=== PATIENT | female | born 1985 | race Caucasian/White ===

== ENCOUNTER 2020-09-01 07:56 | Outpatient (CLI) | payer BC, SELFPAY ==
--- NOTE | ~2020-09-01 | MM_ITS ---
EXAMINATION: MM screening lara BI w jaimie HISTORY: Screening mammogram TECHNIQUE: Craniocaudal and mediolateral oblique 3-D tomosynthesis images were obtained and synthetic 2-D images were generated. CAD analysis was submitted and interpreted. COMPARISON: 09/18/2018 bilateral digital screening mammogram BREAST PARENCHYMAL COMPOSITION: There are scattered areas of fibroglandular density. FINDINGS: There is no evidence of suspicious mass, calcification, or architectural distortion to sugg est malignancy in either breast. There has been no suspicious interval change. IMPRESSION: 1. No mammographic evidence of malignancy. 2. Recommend routine screening mammography in one year. BI-RADS Category 1: Negative Reviewed, dictated and finalized at location A. PROGRAMMER
== END 2020-09-01 07:57 | disposition home or self-care (01) ==
PROVIDERS: PCP Physician Assistant; Visit Provider Obstetrics & Gynecology
DX: Z12.31 Encounter for screening mammogram for malignant neoplasm of breast (principal)
CPT/HCPCS: 77063; 77067

== ENCOUNTER → 2021-03-24 10:56 | Outpatient (REF) | payer BC, SELFPAY | LOC: ANHLAB 10:56 | PROVIDERS: PCP Physician Assistant; Visit Provider Nurse Practitioner | DX: D23.9 Other benign neoplasm of skin, unspecified (principal) | CPT/HCPCS: 88305 ==

== ENCOUNTER 2022-09-28 08:00 | Outpatient (NON) | payer BC, SELFPAY | END 2022-09-28 08:01 | disposition home or self-care (01) | LOC: ANHLAB 09-29 12:01 | PROVIDERS: PCP Physician Assistant; Visit Provider Nurse Practitioner | DX: L91.0 Hypertrophic scar (principal) | CPT/HCPCS: 88305 ==

== ENCOUNTER 2023-04-28 22:00 | Emergency (ER) | payer BC, SELFPAY ==
--- NOTE | ~2023-04-28 | XR_ITS ---
EXAMINATION: XR chest 1V portable 04/28/2023 23:32 INDICATION: Chest and back pain. Cough. PROCEDURE: AP portable chest COMPARISON: No prior studies for comparison. FINDINGS: The lungs are clear. The cardiomediastinal silhouette is within normal limits. There are no pleural effusions. There is no pneumothorax suspected. IMPRESSION: 1: NO ACUTE CARDIOPULMONARY DISEASE. Reviewed, dictated and finalized at location A.
[2023-04-28 22:01] VITALS: BP 151/83; PULSE 83; RESP 20; TEMP 36.6; O2SAT 100
--- NOTE | 2023-04-28 23:10 | ECG_ITS ---
Measurements Intervals [place] Rate: 72 P: 47 AK: 151 QRS: 52 QRSD: 85 T: -1 QT: 376 QTc: 413 Interpretive Statements SINUS RHYTHM NONSPECIFIC T-WAVE ABNORMALITY- ANT/INF LEADS BORDERLINE ECG NO PREVIOUS ECG AVAILABLE FOR COMPARISON Electronically Signed On 04-29-2023 7:49:57 CDT by Elbert Perales D.O.
--- NOTE | 2023-04-28 23:20 | ED.GENADULT ---
HPI - General Adult General Chief complaint: Back Pain/Injury <Vinny Michelle PA-C - Last Filed: 04/29/23 01:10> Stated complaint: back pain <ALVARADO Duarte Last Filed: 04/29/23 01:10> Time Seen by Provider: 04/28/23 22:32 <Vinny Michelle PA-C - Last Filed: 04/29/23 01:10> Source: patient <ALVARADO Duarte Last Filed: 04/29/23 01:10> Mode of arrival: ambulatory <ALVARADO Duarte Last Filed: 04/29/23 01:10> Limitations: no limitations <ALVARADO Durate Last Filed: 04/29/23 01:10> History of Present Illness HPI narrative: This is a 37-year-old female who presents to the ED with chief complaint of mid to upper back pain onset today. Reports she has a recent viral illness and has been coughing a lot. She feels that this pain is likely due to coughing hard. She is concerned for a spasm. She reports pain across the chest at times as well but her main complaint is the back pain. Denies any exertional component to the chest pain. Denies shortness of breath. She states the cough is nonproductive. Denies fevers, chills, leg swelling, palpitations, LOC, vomiting, abdominal pain. <Vinny Michelle PA-C - Last Filed: 04/29/23 01:10> Related Data Allergies/adverse reactions: Allergies Allergy/AdvReac Type Severity Reaction Status Date / Time No Known Allergies Allergy Verified 04/28/23 22:00 <Vinny Michelle PA-C - Last Filed: 04/29/23 01:10> Review of Systems Review of Systems: All systems as dictated in HPI <ALVARADO Duarte Last Filed: 04/29/23 01:10> [facility] Social History Social History: Social History Smoking status: Never smoker <ALVARADO Duarte Last Filed: 04/29/23 01:10> Exam Narrative: GENERAL: Well-appearing, well-nourished, and in no acute distress. HEAD: Normocephalic, atraumatic. EYES: PERRLA and EOMI. ENT: Nares clear, no rhinorrhea or epistaxis. Mucous membranes moist. Oropharynx without tonsillar hypertrophy exudate or other lesions. NECK: Supple. No adenopathy or masses. CHEST: No respiratory distress. Clear to auscultation. No wheezes rales or rhonchi. Mild chest wall tenderness across the chest. HEART: Regular rate and rhythm. No murmur heard. Normal peripheral pulses. ABDOMEN: Soft, nontender, nondistended, normal active bowel sounds. MSK: Tenderness across the upper back. Pain is reproducible with lateral bending to the right. No midline spinal tenderness. SKIN: Warm, dry, no rash. NEURO: Alert and oriented x3. No focal deficits. PSYCH: Normal mood and affect. <Vinny Michelle PA-C - Last Filed: 04/29/23 01:10> Course Course Emergency Course: Reevaluation 0048: Patient feeling much improved and ready to go home. <Vinny Michelle PA-C - Last Filed: 04/29/23 01:10> [employer]ENT/PA Physician Supervision This visit was performed by both a physician and an APC. I performed all aspects of the MDM as documented. <Carla Olivo MD - Last Filed: 04/29/23 01:11> Vital Signs Vital signs: Vital Signs Temperature 97.8 F 04/28/23 22:01 Pulse Rate 83 04/28/23 22:01 Respiratory Rate 20 04/28/23 22:01 Blood Pressure 151/83 H 04/28/23 22:01 Pulse Oximetry 100 04/28/23 22:01 Oxygen Delivery Room Air 04/28/23 22:01 Temperature 97.8 F 04/28/23 22:01 Pulse Rate 83 04/28/23 22:01 Respiratory Rate 20 04/28/23 22:01 Blood Pressure 151/83 H 04/28/23 22:01 Pulse Oximetry 100 04/28/23 22:01 Oxygen Delivery Room Air 04/28/23 22:01 <Vinny Michelle PA-C - Last Filed: 04/29/23 01:10> Vital Signs Temperature 97.8 F 04/28/23 22:01 Pulse Rate 83 04/28/23 22:01 Respiratory Rate 20 04/28/23 22:01 Blood Pressure 151/83 H 04/28/23 22:01 Pulse Oximetry 100 04/28/23 22:01 Oxygen Delivery Room Air 04/28/23 22:01 Temperature 97.8 F 04/28/23 22:01 Pulse Rate 83 04/28/23 22:01 Respiratory
[2023-04-28] MEDS: KETOROLAC 30 MG/ML VIAL (*BKC) IM (23:33)
[2023-04-28] MEDS: ORPHENADRINE CITRATE 100 MG TABLET.ER PO (23:33)
== END 2023-04-29 00:59 | disposition home or self-care (01) ==
PROVIDERS: Emergency Provider Physician Assistant; PCP Physician Assistant
DX: S29.012A Strain of muscle and tendon of back wall of thorax, initial encounter (principal); R94.31 Abnormal electrocardiogram [ECG] [EKG]; X50.9XXA Other and unspecified overexertion or strenuous movements or postures, initial encounter
CPT/HCPCS: 71045; 93005; 96372; 99283; A9270; J1885

== ENCOUNTER 2023-05-16 07:00 | Outpatient (NON) | payer BC, SELFPAY | END 2023-05-16 07:01 | disposition home or self-care (01) | LOC: ANHLAB 05-18 12:22 | PROVIDERS: PCP Physician Assistant; Visit Provider Nurse Practitioner | DX: D48.5 Neoplasm of uncertain behavior of skin (principal) | CPT/HCPCS: 88305 ==